=== PATIENT | male | born 1960 | race Caucasian/White ===

== ENCOUNTER 2024-02-09 06:42 | Day surgery (SDC) | payer BC, SELFPAY ==
[2024-02-09 09:55] LABS: Glucose - Point of Care 115 mg/dl (70-99)
== END 2024-02-09 11:39 | disposition home or self-care (01) ==
LOC: GI 06:42
PROVIDERS: ATTENDING PHYSICIAN Internal Medicine Gastroenterology
DX: D12.2 Benign neoplasm of ascending colon (principal); D12.3 Benign neoplasm of transverse colon; D12.5 Benign neoplasm of sigmoid colon; K57.30 Diverticulosis of large intestine without perforation or abscess without bleeding; Z86.0101 Personal history of adenomatous and serrated colon polyps
CPT/HCPCS: 45385; 45380; 88305; 82962